=== PATIENT | male | born 1960 | race Caucasian/White ===

== ENCOUNTER 2019-06-21 10:05 | Observation (INO) | payer BC ==
[~2019-06-21] VITALS: Ht 182.9 cm; Wt 101.0 kg
[2019-06-21 10:32] LABS: BASOPHILS # (AUTO) 0.04 x10^3/uL (0-0.1); BASOPHILS % (AUTO) 1 % (0-1); EOSINOPHILS # (AUTO) 0.26 x10^3/uL (0-0.4); EOSINOPHILS % (AUTO) 3 % (1-7); LYMPHOCYTES # (AUTO) 2.16 x10^3/uL (1-3.4); LYMPHOCYTES % (AUTO) 26 % (22-44); MD NO; MEAN CORPUSCULAR HEMOGLOBIN 31.6 pg (27.5-34.5); MEAN CORPUSCULAR HGB CONC 33.4 g/dL (33.2-36.2); MEAN CORPUSCULAR VOLUME 94.7 fL (81-97); MEAN PLATELET VOLUME 8.4 fL (7.4-10.4); MONOCYTES % (AUTO) 8 % (2-9); NEUTROPHILS # (AUTO) 5.19 x10^3/uL (1.8-6.8); NEUTROPHILS % (AUTO) 62 % (42-75); PLATELET COUNT 244 x10^3/uL (130-400); RED BLOOD COUNT 5.57 x10^6/uL (4.38-5.82); RED CELL DISTRIBUTION WIDTH 13.5 % (9.4-14.8)
[2019-06-21 10:41] LABS: ALANINE AMINOTRANSFERASE 55 U/L (12-78); ALBUMIN 4.2 g/dL (3.4-5.0); ANION GAP 7 mmol/L (5-15); CALCIUM 8.7 mg/dL (8.5-10.1); CHLORIDE 107 mmol/L (98-107); CREATININE 1.11 mg/dL (0.7-1.3)
[2019-06-21 10:46] LABS: ALKALINE PHOSPHATASE 89 U/L (45-117); BILIRUBIN,TOTAL 0.8 mg/dL (0.2-1.0); TOTAL PROTEIN 7.9 g/dL (6.4-8.2); TROPONIN I < 0.015 ng/mL (0.000-0.045)
[2019-06-21] MEDS ORDERED: ACETAMINOPHEN 325 MG TABLET PO PRN (12:00)
[2019-06-21] MEDS ORDERED: morphine SULFATE 10 MG/ML, 1ML IVPush PRN (12:00)
[2019-06-21] MEDS ORDERED: NITROGLYCERIN 0.4 MG BOTTLE (25 TABS) SL PRN (12:30)
[2019-06-21] MEDS ORDERED: ENOXAPARIN 40 MG/0.4 ML ONE (13:16)
[2019-06-21] MEDS ORDERED: OMEP-110 PO (14:24)
[2019-06-21] MEDS ORDERED: SIMV80TA18 PO (14:24)
[2019-06-21] MEDS ORDERED: ATEN50TA41 PO (14:24)
[2019-06-21] MEDS: MULTIVITAMIN 1 TABLET PO SCH (14:25)
[2019-06-21] MEDS: ENOXAPARIN 40 MG/0.4 ML SQ SCH (14:26)
--- NOTE | 2019-06-21 14:27 | NUR ---
RECEIVED REPORT FROM ABBE DERAS. CARE ASSUMED. HOSPITAL BED REQUESTED FOR PT. PT RESTING IN POSITION OF COMFORT. DENIES ANY PAIN, CP, SOB AND NEED TO USE RESTROOM. MED REC COMPLETED. VSS. SR ON MONITOR. PT REFUSING IV PLACEMENT, PO MULTIVITAMIN AND LOVENOX "IF I DON'T REALLY NEED THEM I WOULD PREFER NOT TO HAVE THEM, THAT VITAMIN IS PROBABLY EXPENSIVE, AND I FEEL LIKE I'M ACTIVE ENOUGH I WON'T GET A BLOOD CLOT, IF THE IV ISN'T REQUIRED I WOULD LIKE TO WAIT." PT REQUESTING FOOD AND WATER. TO DISCUSS CONCERNS AND REQUEST WITH DR. DUMONT, ADMITTING PROVIDER. FALL PRECAUTIONS IN PLACE. SIDE RAILS UPX2. A&OX4. CALL LIGHT IN REACH.
--- NOTE | 2019-06-21 14:45 | NUR ---
DR. DUMONT PAGED TO DISCUSS PT REQUEST FOR FOOD AND REFUSAL OF IV AND MEDICATIONS.
--- NOTE | 2019-06-21 15:00 | NUR ---
DISCUSSED IV AND MEDICATIONS WITH DR. JULIA MD AWARE PT REFUSED PO MULTI-VITAMIN AND LOVENOX "OKAY THANK YOU PLEASE DOCUMENT HIS REFUSAL." DISCUSSED IV, EXPLAINED NEED FOR IV TO PT, PT AGREES TO HAVE IV PLACED.
--- NOTE | 2019-06-21 15:17 | NUR ---
REPORT GIVEN TO REMI DERAS FOR BED 103-2 IN ICU/OVERFLOW CARD TELE
--- NOTE | 2019-06-21 15:18 | NUR ---
DISCUSSED IV WITH REMI, AWARE PT NEEDS IV AND PT AGREES TO PLACEMENT. REMI RN TO PLACE IV ON FLOOR. DR. DUMONT AWARE.
[2019-06-21 16:48] LABS: TROPONIN I < 0.015 ng/mL (0.000-0.045)
[2019-06-21 19:25] VITALS: BP 163/94
[2019-06-21 20:15] VITALS: BP 153/90
[2019-06-21] MEDS ORDERED: SIMVASTATIN 40 MG TABLET PO SCH (21:00)
[2019-06-21 22:23] LABS: TROPONIN I < 0.015 ng/mL (0.000-0.045)
[2019-06-22 02:00] VITALS: BP 134/87
[2019-06-22 04:38] LABS: BASOPHILS # (AUTO) 0.04 x10^3/uL (0-0.1); BASOPHILS % (AUTO) 1 % (0-1); EOSINOPHILS # (AUTO) 0.27 x10^3/uL (0-0.4); EOSINOPHILS % (AUTO) 4 % (1-7); LYMPHOCYTES # (AUTO) 1.64 x10^3/uL (1-3.4); LYMPHOCYTES % (AUTO) 24 % (22-44); MD NO; MEAN CORPUSCULAR HEMOGLOBIN 32.3 pg (27.5-34.5); MEAN CORPUSCULAR HGB CONC 33.8 g/dL (33.2-36.2); MEAN CORPUSCULAR VOLUME 95.5 fL (81-97); MEAN PLATELET VOLUME 8.7 fL (7.4-10.4); MONOCYTES # (AUTO) 0.61 x10^3/uL (0.2-0.8); MONOCYTES % (AUTO) 9 % (2-9); NEUTROPHILS % (AUTO) 63 % (42-75); PLATELET COUNT 208 x10^3/uL (130-400); RED BLOOD COUNT 5.13 x10^6/uL (4.38-5.82); RED CELL DISTRIBUTION WIDTH 13.2 % (9.4-14.8)
[2019-06-22 04:46] LABS: ANION GAP 7 mmol/L (5-15); CALCIUM 8.7 mg/dL (8.5-10.1); CHLORIDE 109 mmol/L (98-107); CREATININE 1.01 mg/dL (0.7-1.3)
[2019-06-22 04:47] LABS: CHOLESTEROL, TOTAL 156 mg/dL (140-239); TRIGLYCERIDES 149 mg/dL (50-200); VLDL CHOLESTEROL 30 mg/dL (0-25)
[2019-06-22 04:48] LABS: CHOL/HDL RATIO 2.7; HDL CHOL % 37 % (26-37); HDL CHOLESTEROL (DIRECT) 57 mg/dL (40-60); LDL CHOLESTEROL,CALCULATED 69 mg/dL (54-169); LDL/HDL RATIO 1.2 (0.5-3.0)
[2019-06-22] MEDS ORDERED: ASPIRIN 81 MG TABLET EC PO SCH (06:00)
[2019-06-22] MEDS ORDERED: ATENOLOL 25 MG TABLET PO SCH (06:00)
[2019-06-22] MEDS ORDERED: PANTOPROZOLE 40MG TABLET PO SCH (07:30)
[2019-06-22 08:31] VITALS: BP 150/100
[2019-06-22] MEDS: MULTIVITAMIN 1 TABLET PO SCH (09:00)
[2019-06-22] MEDS ORDERED: REGADENOSON 0.4 MG/5 ML SYRINGE ONE (09:15)
[2019-06-22] MEDS: ENOXAPARIN 40 MG/0.4 ML SQ SCH (12:00)
[2019-06-22] MEDS ORDERED: ASPI81TA45 PO (13:45)
== END 2019-06-22 14:40 | disposition home or self-care (01) ==
LOC: ED 11:18 → EDIP 11:19 → INTOOBSV 11:19 → ED 12:08 → ICU 15:27 → DCLOUNGE 06-22 14:36
PROVIDERS: ADMIT Internal Medicine; ATTEND Internal Medicine
DX: R07.89 Other chest pain (principal); I10 Essential (primary) hypertension; E78.5 Hyperlipidemia, unspecified; E78.00 Pure hypercholesterolemia, unspecified; K21.9 Gastro-esophageal reflux disease without esophagitis; I44.7 Left bundle-branch block, unspecified; E66.9 Obesity, unspecified; I16.0 Hypertensive urgency; F10.10 Alcohol abuse, uncomplicated; Z79.899 Other long term (current) drug therapy
CPT/HCPCS: 36415; 71046; 78452; 80048; 80053; 80061; 83735; 84443; 84484; 85025; 87081; 93005; 93017; 93306; A9502; C9898; G0378; J2785

== ENCOUNTER 2019-07-15 22:01 | Emergency (ER) | payer BC ==
[~2019-07-15] VITALS: Ht 182.9 cm; Wt 99.1 kg
[~2019-07-15 22:01] MED LIST: ASPI81TA45 PO; ATEN50TA41 PO; OMEP-110 PO; SIMV80TA18 PO
[2019-07-15] MEDS ORDERED: HYDROmorphone 1 MG/ML, 1ML INJ ONE ×2 (22:23→23:59)
[2019-07-15] MEDS ORDERED: ONDANSETRON 2MG/ML, 2ML ONE (22:23)
[2019-07-15] MEDS: HYDROmorphone 2 MG/ML, 1ML IVPush PRN (22:26)
[2019-07-15] MEDS ORDERED: SODIUM CHLORIDE FLUSH 10ML SYR IVF ONE (22:30)
[2019-07-15] MEDS ORDERED: ONDANSETRON 2MG/ML, 2ML IVPush ONE (22:30)
[2019-07-15 22:42] LABS: BASOPHILS # (AUTO) 0.02 x10^3/uL (0-0.1); BASOPHILS % (AUTO) 0 % (0-1); EOSINOPHILS # (AUTO) 0.52 x10^3/uL (0-0.4); EOSINOPHILS % (AUTO) 7 % (1-7); LYMPHOCYTES # (AUTO) 1.81 x10^3/uL (1-3.4); LYMPHOCYTES % (AUTO) 23 % (22-44); MD NO; MEAN CORPUSCULAR HEMOGLOBIN 31.9 pg (27.5-34.5); MEAN CORPUSCULAR HGB CONC 34.3 g/dL (33.2-36.2); MEAN CORPUSCULAR VOLUME 92.9 fL (81-97); MEAN PLATELET VOLUME 8.9 fL (7.4-10.4); MONOCYTES # (AUTO) 0.97 x10^3/uL (0.2-0.8); MONOCYTES % (AUTO) 12 % (2-9); NEUTROPHILS # (AUTO) 4.55 x10^3/uL (1.8-6.8); NEUTROPHILS % (AUTO) 58 % (42-75); PLATELET COUNT 268 x10^3/uL (130-400); RED CELL DISTRIBUTION WIDTH 13.1 % (9.4-14.8)
[2019-07-15] MEDS ORDERED: OMNIPAQUE 350 MG/ML, 150 ML BOTTLE ONE (22:51)
[2019-07-15 22:52] LABS: ALANINE AMINOTRANSFERASE 208 U/L (12-78); ALBUMIN 3.8 g/dL (3.4-5.0); ANION GAP 6 mmol/L (5-15); CALCIUM 9.4 mg/dL (8.5-10.1); CHLORIDE 109 mmol/L (98-107); CREATININE 1.09 mg/dL (0.7-1.3)
[2019-07-15 22:55] LABS: ALKALINE PHOSPHATASE 132 U/L (45-117); BILIRUBIN,TOTAL 0.9 mg/dL (0.2-1.0); TOTAL PROTEIN 8.1 g/dL (6.4-8.2)
[2019-07-15 23:07] LABS: INTERNATIONAL NORMALIZED RATIO 0.93 (0.93-1.1); PROTHROMBIN TIME 9.9 Seconds (9.6-11.5)
[2019-07-15] MEDS ORDERED: SODIUM CHLORIDE 0.9%, 500ML IVBOLUS ONE (23:30)
[2019-07-15 23:44] LABS: MICROSCOPIC NOT IND
[2019-07-15 23:49] LABS: CULTURE INDICATED? NO
[2019-07-16] MEDS: HYDROmorphone 2 MG/ML, 1ML IVPush PRN (00:08)
[2019-07-16 00:22] VITALS: BP 146/86
== END 2019-07-16 01:40 | disposition home or self-care (01) ==
LOC: ED 07-16 01:25
DX: R10.84 Generalized abdominal pain (principal); M54.6 Pain in thoracic spine; I10 Essential (primary) hypertension; R74.0 Nonspecific elevation of levels of transaminase and lactic acid dehydrogenase [LDH]
CPT/HCPCS: 36415; 71275; 74174; 80053; 80307; 81003; 83605; 83690; 83735; 85025; 85610; 85730; 93005; 96374; 96375; 96376; 99285; J1170; J2405; J7040; Q9967

== ENCOUNTER 2019-11-01 13:37 | Inpatient (IN) | payer BC ==
[~2019-11-01] VITALS: Ht 182.9 cm; Wt 100.6 kg
--- NOTE | 2019-11-01 14:00 | NUR ---
late entry for 1400: pt presents to ED with c/o midline thoracic pain radiating to bilateral abdomen, with n/v onset last night. pt seen in this ED for same last night, discharged. pt reports "the morphine wore off and the pain came back." pt attached to all monitors, EKG taken on arrival in triage. awaiting MD assessment and orders.
[2019-11-01] MEDS ORDERED: MORPHINE SULFATE 4 MG/ML, 1ML IVPush PRN (15:00)
[2019-11-01] MEDS ORDERED: SODIUM CHLORIDE FLUSH 10ML SYR IVF ONE (15:00)
--- NOTE | 2019-11-01 15:04 | NUR ---
pt vomited and became tachycardic as high as rate 140. pt remains tachy at rate 120s. pt has wide qrs complex, repeat ekg taken, showing sinus tach with bundle branch block. TOMASA King notified, both EKGs reviewed by ED. pt awake, alert, and oriented. resps even and unlabored. pt remains hypertensive. MD to see pt shortly.
--- NOTE | 2019-11-01 15:07 | NUR ---
report given to AUGUSTA Felder at bedside.
[2019-11-01] MEDS ORDERED: HYDROmorphone 1 MG/ML, 1ML INJ ONE (15:20)
[2019-11-01] MEDS ORDERED: ONDANSETRON 2MG/ML, 2ML ONE (15:20)
[2019-11-01] MEDS ORDERED: METOPROLOL 1 MG/ML, 5ML ONE ×2 (15:21→16:24)
--- NOTE | 2019-11-01 15:24 | NUR ---
ECHOCARDIOGRAM IN PROCESS AT BEDSIDE. SCANNER AND ROOM COMPUTER UNACCESSIBLE AT THE MOMENT. PT DENIES ANY NEEDS OR CONCERNS AT THIS TIME, CALL LIGHT IN REACH.
[2019-11-01] MEDS ORDERED: HYDROmorphone 2 MG/ML, 1ML IVPush PRN (15:30)
[2019-11-01] MEDS ORDERED: ONDANSETRON 2MG/ML, 2ML IVPush ONE (15:30)
[2019-11-01 15:35] LABS: ALANINE AMINOTRANSFERASE 316 U/L (12-78); ALBUMIN 3.9 g/dL (3.4-5.0); ANION GAP 8 mmol/L (5-15); CALCIUM 8.9 mg/dL (8.5-10.1); CHLORIDE 108 mmol/L (98-107); CREATININE 1.11 mg/dL (0.7-1.3)
[2019-11-01 15:40] LABS: ALKALINE PHOSPHATASE 171 U/L (45-117); BILIRUBIN,TOTAL 4.4 mg/dL (0.2-1.0); TOTAL PROTEIN 7.6 g/dL (6.4-8.2); TROPONIN I < 0.015 ng/mL (0.000-0.045)
[2019-11-01 15:41] LABS: MEAN CORPUSCULAR HEMOGLOBIN 32.1 pg (27.5-34.5); MEAN CORPUSCULAR VOLUME 94.4 fL (81-97); MEAN PLATELET VOLUME 8.4 fL (7.4-10.4); PLATELET COUNT 167 x10^3/uL (130-400); RED BLOOD COUNT 5.33 x10^6/uL (4.38-5.82); RED CELL DISTRIBUTION WIDTH 13.7 % (9.4-14.8)
[2019-11-01] MEDS: METOPROLOL 1 MG/ML, 5ML IVPush PRN ×2 (16:10→16:28)
--- NOTE | 2019-11-01 16:19 | NUR ---
CARLIE NEWMAN - [facility] - [phone]
--- NOTE | 2019-11-01 16:19 | NUR ---
PT VERBALIZES GOOD PAIN RELIEF WITH MEDICATION. DENIES ANY FURTHER NEEDS AT THIS TIME. CALL LIGHT IN REACH.
[2019-11-01 16:26] LABS: MD YES
[2019-11-01 16:31] LABS: BAND#(MANUAL) 2.24 x10^3/uL; BANDS%(MANUAL) 16 % (0-7); LYMPH#(MANUAL) 0.42 x10^3/uL (1-3.4); LYMPHS% (MANUAL) 3 % (22-44); MONOS% (MANUAL) 5 % (2-9); SEG#(MANUAL) 10.64 x10^3/uL (1.8-6.8); SEGS% (MANUAL) 76 % (42-75)
[2019-11-01 16:33] LABS: <PLATELET ESTIMATE> ADEQUATE; <PLT MORPHOLOGY> NORMAL PLT MORPH; ANISOCYTOSIS 1+; OVALOCYTES 1+
--- NOTE | 2019-11-01 18:23 | NUR ---
REPORT CALLED TO ROLY, RECEIVING RN. PT RESTING IN BED, DENIES ANY NEEDS OR CONCERNS AT THIS TIME. CALL LIGHT IN REACH.
[2019-11-01] MEDS ORDERED: DEXTROSE 50%, 50ML SYRINGE IVPush ONE (18:30)
[2019-11-01 18:54] VITALS: BP 119/81
[2019-11-01] MEDS ORDERED: BISACODYL 10 MG SUPP PR PRN (19:00)
[2019-11-01] MEDS ORDERED: ONDANSETRON 2MG/ML, 2ML IVPush PRN (19:00)
[2019-11-01] MEDS: HEPARIN 5,000 UNITS/ML, 1ML SQ SCH (19:19)
[2019-11-01] MEDS: LACTATED RINGERS 1,000 ML IV SCH (19:20)
[2019-11-01 20:00] VITALS: BP 119/81
[2019-11-01] MEDS ORDERED: CHOL10003 PO (22:10)
[2019-11-01] MEDS ORDERED: MULT-826 PO (22:11)
[2019-11-02] MEDS: LACTATED RINGERS 1,000 ML IV SCH ×4 (01:35→21:50)
[2019-11-02] MEDS: morphine SULFATE 10 MG/ML, 1ML IVPush PRN ×4 (01:44→17:38)
[2019-11-02 01:55] VITALS: BP 114/76
[2019-11-02 05:01] VITALS: BP 143/81
[2019-11-02 05:28] LABS: BASOPHILS # (AUTO) 0.01 x10^3/uL (0-0.1); BASOPHILS % (AUTO) 0 % (0-1); EOSINOPHILS # (AUTO) 0.07 x10^3/uL (0-0.4); EOSINOPHILS % (AUTO) 1 % (1-7); LYMPHOCYTES # (AUTO) 0.52 x10^3/uL (1-3.4); LYMPHOCYTES % (AUTO) 4 % (22-44); MD NO; MEAN CORPUSCULAR HEMOGLOBIN 31.6 pg (27.5-34.5); MEAN CORPUSCULAR HGB CONC 33.8 g/dL (33.2-36.2); MEAN CORPUSCULAR VOLUME 93.5 fL (81-97); MEAN PLATELET VOLUME 9.1 fL (7.4-10.4); MONOCYTES # (AUTO) 0.76 x10^3/uL (0.2-0.8); MONOCYTES % (AUTO) 6 % (2-9); NEUTROPHILS # (AUTO) 11.24 x10^3/uL (1.8-6.8); NEUTROPHILS % (AUTO) 89 % (42-75); PLATELET COUNT 178 x10^3/uL (130-400); RED BLOOD COUNT 4.76 x10^6/uL (4.38-5.82); RED CELL DISTRIBUTION WIDTH 13.7 % (9.4-14.8)
[2019-11-02] MEDS: HEPARIN 5,000 UNITS/ML, 1ML SQ SCH ×3 (05:30→21:20)
[2019-11-02 05:38] LABS: CHLORIDE 105 mmol/L (98-107)
[2019-11-02 05:45] LABS: ALANINE AMINOTRANSFERASE 363 U/L (12-78); ALBUMIN 3.4 g/dL (3.4-5.0); ALKALINE PHOSPHATASE 152 U/L (45-117); ANION GAP 7 mmol/L (5-15); CALCIUM 8.5 mg/dL (8.5-10.1); CHOL/HDL RATIO 1.8; CHOLESTEROL, TOTAL 108 mg/dL (140-239); CREATININE 1.04 mg/dL (0.7-1.3); HDL CHOL % 56 % (26-37); HDL CHOLESTEROL (DIRECT) 61 mg/dL (40-60); TOTAL PROTEIN 6.8 g/dL (6.4-8.2)
[2019-11-02 05:53] LABS: LDL CHOLESTEROL,CALCULATED 35 mg/dL (54-169); LDL/HDL RATIO 0.6 (0.5-3.0); TRIGLYCERIDES 61 mg/dL (50-200); VLDL CHOLESTEROL 12 mg/dL (0-25)
[2019-11-02 06:42] VITALS: BP 149/81
[2019-11-02] MEDS ORDERED: LORazepam 2 MG/ML, 1ML IV PRN (08:00)
[2019-11-02] MEDS: ACETAMINOPHEN 325 MG TABLET PO PRN ×2 (11:15→21:20)
[2019-11-02 13:35] VITALS: BP 139/68
[2019-11-02 18:07] VITALS: BP 156/87
[2019-11-03 01:51] VITALS: BP 154/90
[2019-11-03] MEDS: LACTATED RINGERS 1,000 ML IV SCH ×3 (04:25→21:20)
[2019-11-03] MEDS: HEPARIN 5,000 UNITS/ML, 1ML SQ SCH ×3 (05:14→20:47)
[2019-11-03] MEDS: ACETAMINOPHEN 325 MG TABLET PO PRN (05:16)
[2019-11-03 06:17] VITALS: BP 144/83
[2019-11-03] MEDS ORDERED: OMNIPAQUE 350 MG/ML, 100ML BOTTLE ONE (09:53)
[2019-11-03] MEDS ORDERED: GADOTERATE 10 MMOL/20 ML VIAL ONE (10:37)
[2019-11-03 11:52] LABS: MICROSCOPIC NOT IND
[2019-11-03 12:47] VITALS: BP 158/82
[2019-11-03 18:31] VITALS: BP 155/85
[2019-11-03] MEDS ORDERED: METOCLOPRAMIDE 5 MG/ML, 2ML IVPush ONE (21:00)
[2019-11-03] MEDS ORDERED: DIPHENHYDRAMINE 50 MG/ML, 1ML IVPush ONE (21:00)
[2019-11-04 01:34] VITALS: BP 149/78
[2019-11-04] MEDS: HEPARIN 5,000 UNITS/ML, 1ML SQ SCH ×3 (04:58→19:58)
[2019-11-04] MEDS: LACTATED RINGERS 1,000 ML IV SCH ×3 (04:58→17:01)
[2019-11-04 06:21] LABS: BASOPHILS # (AUTO) 0.01 x10^3/uL (0-0.1); BASOPHILS % (AUTO) 0 % (0-1); EOSINOPHILS # (AUTO) 0.17 x10^3/uL (0-0.4); EOSINOPHILS % (AUTO) 2 % (1-7); LYMPHOCYTES # (AUTO) 0.91 x10^3/uL (1-3.4); LYMPHOCYTES % (AUTO) 11 % (22-44); MD NO; MEAN CORPUSCULAR HEMOGLOBIN 32.1 pg (27.5-34.5); MEAN CORPUSCULAR HGB CONC 34.5 g/dL (33.2-36.2); MEAN CORPUSCULAR VOLUME 93.2 fL (81-97); MEAN PLATELET VOLUME 8.9 fL (7.4-10.4); MONOCYTES # (AUTO) 0.96 x10^3/uL (0.2-0.8); MONOCYTES % (AUTO) 11 % (2-9); NEUTROPHILS # (AUTO) 6.59 x10^3/uL (1.8-6.8); NEUTROPHILS % (AUTO) 76 % (42-75); PLATELET COUNT 169 x10^3/uL (130-400); RED BLOOD COUNT 4.66 x10^6/uL (4.38-5.82); RED CELL DISTRIBUTION WIDTH 13.5 % (9.4-14.8)
[2019-11-04 06:23] LABS: ALANINE AMINOTRANSFERASE 250 U/L (12-78); ALBUMIN 3.1 g/dL (3.4-5.0); ANION GAP 10 mmol/L (5-15); CALCIUM 8.2 mg/dL (8.5-10.1); CHLORIDE 104 mmol/L (98-107); CREATININE 0.83 mg/dL (0.7-1.3)
[2019-11-04 06:26] LABS: ALKALINE PHOSPHATASE 159 U/L (45-117); BILIRUBIN,TOTAL 2.7 mg/dL (0.2-1.0); TOTAL PROTEIN 6.9 g/dL (6.4-8.2)
[2019-11-04 07:08] VITALS: BP 168/100
[2019-11-04] MEDS: hydrALAzine 20 MG/ML, 1ML IVPush PRN ×2 (07:47→12:17)
[2019-11-04] MEDS: OXYcodone IR 5MG TABLET PO PRN ×3 (10:39→23:05)
[2019-11-04 12:02] VITALS: BP 182/96
[2019-11-04 18:15] VITALS: BP 178/94
[2019-11-04] MEDS: morphine SULFATE 10 MG/ML, 1ML IVPush PRN (19:58)
[2019-11-05] MEDS: LACTATED RINGERS 1,000 ML IV SCH ×2 (00:02→06:12)
[2019-11-05 00:43] VITALS: BP 157/86
[2019-11-05] MEDS: HEPARIN 5,000 UNITS/ML, 1ML SQ SCH ×2 (05:05→13:09)
[2019-11-05] MEDS: OXYcodone IR 5MG TABLET PO PRN (05:05)
[2019-11-05 06:14] LABS: BASOPHILS % (AUTO) 0 % (0-1); EOSINOPHILS # (AUTO) 0.13 x10^3/uL (0-0.4); EOSINOPHILS % (AUTO) 2 % (1-7); LYMPHOCYTES # (AUTO) 1.05 x10^3/uL (1-3.4); LYMPHOCYTES % (AUTO) 13 % (22-44); MD NO; MEAN CORPUSCULAR HEMOGLOBIN 31.5 pg (27.5-34.5); MEAN CORPUSCULAR HGB CONC 33.9 g/dL (33.2-36.2); MEAN CORPUSCULAR VOLUME 92.8 fL (81-97); MEAN PLATELET VOLUME 8.4 fL (7.4-10.4); MONOCYTES # (AUTO) 0.91 x10^3/uL (0.2-0.8); MONOCYTES % (AUTO) 12 % (2-9); NEUTROPHILS # (AUTO) 5.75 x10^3/uL (1.8-6.8); NEUTROPHILS % (AUTO) 73 % (42-75); PLATELET COUNT 195 x10^3/uL (130-400); RED BLOOD COUNT 4.52 x10^6/uL (4.38-5.82); RED CELL DISTRIBUTION WIDTH 13.5 % (9.4-14.8)
[2019-11-05 06:23] LABS: CHLORIDE 105 mmol/L (98-107)
[2019-11-05 06:34] LABS: ALANINE AMINOTRANSFERASE 191 U/L (12-78); ALKALINE PHOSPHATASE 149 U/L (45-117); ANION GAP 8 mmol/L (5-15); BILIRUBIN,TOTAL 2.1 mg/dL (0.2-1.0); CALCIUM 8.4 mg/dL (8.5-10.1); CREATININE 0.67 mg/dL (0.7-1.3); TOTAL PROTEIN 6.7 g/dL (6.4-8.2)
[2019-11-05 06:38] VITALS: BP 160/89
[2019-11-05] MEDS ORDERED: AMLODIPINE 5 MG TABLET PO SCH (09:00)
[2019-11-05] MEDS ORDERED: CHLORTHALIDONE 25 MG TABLET PO SCH (10:30)
[2019-11-05] MEDS ORDERED: MULTIVITAMIN 1 TABLET PO SCH (10:30)
[2019-11-05] MEDS ORDERED: POTASSIUM CHLORIDE 20 MEQ TAB.ER.PRT PO SCH (10:30)
[2019-11-05] MEDS ORDERED: CHOLECALCIFEROL 1,000 UNIT TABLET PO SCH (10:30)
[2019-11-05] MEDS ORDERED: ATENOLOL 50 MG TABLET PO SCH (10:30)
[2019-11-05] MEDS ORDERED: OMEPRAZOLE 20 MG CAPSULE.DR PO SCH (10:30)
[2019-11-05 10:37] LABS: TROPONIN I < 0.015 ng/mL (0.000-0.045)
[2019-11-05 13:23] VITALS: BP 152/92
[2019-11-05 14:53] LABS: TROPONIN I < 0.015 ng/mL (0.000-0.045)
[2019-11-05] MEDS ORDERED: CHLO25TA PO (15:17)
[2019-11-05] MEDS ORDERED: POTA20TA6 PO (15:17)
[2019-11-05] MEDS ORDERED: AMLO-150 PO (15:17)
[2019-11-05] MEDS ORDERED: LACTATED RINGERS 1,000 ML IV SCH (18:45)
[2019-11-06] MEDS ORDERED: OMEPRAZOLE 20 MG CAPSULE.DR PO SCH (09:00)
[2019-11-06] MEDS ORDERED: ATENOLOL 50 MG TABLET PO SCH (09:00)
[2019-11-06] MEDS ORDERED: CHOLECALCIFEROL 1,000 UNIT TABLET PO SCH (09:00)
[2019-11-06] MEDS ORDERED: CHLORTHALIDONE 25 MG TABLET PO SCH (09:00)
[2019-11-06] MEDS ORDERED: MULTIVITAMIN 1 TABLET PO SCH (09:00)
== END 2019-11-05 17:03 | disposition home or self-care (01) | DRG 871 ==
LOC: ED 14:22 → EDIP 17:22 → 4WST 18:42 → DCLOUNGE 11-05 16:58
PROVIDERS: ADMIT Internal Medicine; ATTEND Internal Medicine
DX: A41.9 Sepsis, unspecified organism (principal); K85.20 Alcohol induced acute pancreatitis without necrosis or infection; K21.9 Gastro-esophageal reflux disease without esophagitis; E78.5 Hyperlipidemia, unspecified; I44.7 Left bundle-branch block, unspecified; I10 Essential (primary) hypertension; R74.0 Nonspecific elevation of levels of transaminase and lactic acid dehydrogenase [LDH]; R16.2 Hepatomegaly with splenomegaly, not elsewhere classified; R00.0 Tachycardia, unspecified; F10.10 Alcohol abuse, uncomplicated; R79.89 Other specified abnormal findings of blood chemistry; E66.9 Obesity, unspecified; N28.89 Other specified disorders of kidney and ureter; Z82.49 Family history of ischemic heart disease and other diseases of the circulatory system; Z87.442 Personal history of urinary calculi
CPT/HCPCS: 36415; 71275; 74183; 76700; 80053; 80061; 80074; 81003; 82962; 83605; 83690; 84484; 85025; 85379; 87040; 93005; 93306; 96374; 96375; G0378; J1170; J1644; J2405; Q9967; A9575; J0360; J1200; J2060; J2270; J2765; J7120

== ENCOUNTER 2020-01-29 04:51 | Emergency (ER) | payer BC ==
[~2020-01-29] VITALS: Ht 182.9 cm; Wt 92.5 kg
[~2020-01-29 04:51] MED LIST changes: +AMLO-150 PO; +CHLO25TA PO; +CHOL10003 PO; +MULT-826 PO; +POTA20TA6 PO
[2020-01-29] MEDS ORDERED: ONDANSETRON 2MG/ML, 2ML ONE (05:21)
[2020-01-29] MEDS ORDERED: morphine SULFATE 10 MG/ML, 1ML ONE (05:21)
[2020-01-29] MEDS ORDERED: MORPHINE SULFATE 4 MG/ML, 1ML IVPush PRN (05:30)
[2020-01-29] MEDS ORDERED: MORPHINE SULFATE 4 MG/ML, 1ML IVPush ONE (05:30)
[2020-01-29] MEDS ORDERED: ONDANSETRON 2MG/ML, 2ML IVPush ONE (05:30)
--- NOTE | 2020-01-29 05:31 | NUR ---
PT PRESENTS TO ROOM 21 C/O EPIGASTRIC ABD PAIN THAT RADIATES AROUND THE LEFT SIDE AND INTO HIS BACK. PT HAS LABORED BREATHING AND IS GRUNTING WHILE PACING THE ROOM. PT HAS TENDERNESS IN UPPER ABD. PT MEDICATED PER EMAR, WITH SOME RELIEF. MONITORS IN PLACE, AT BEDSIDE
[2020-01-29] MEDS ORDERED: MORPHINE SULFATE 4 MG/ML, 1ML ONE (05:43)
[2020-01-29 06:01] LABS: BASOPHILS # (AUTO) 0.05 x10^3/uL (0-0.1); BASOPHILS % (AUTO) 1 % (0-1); EOSINOPHILS # (AUTO) 0.27 x10^3/uL (0-0.4); EOSINOPHILS % (AUTO) 3 % (1-7); LYMPHOCYTES # (AUTO) 1.66 x10^3/uL (1-3.4); LYMPHOCYTES % (AUTO) 17 % (22-44); MD NO; MEAN CORPUSCULAR HEMOGLOBIN 30.9 pg (27.5-34.5); MEAN CORPUSCULAR HGB CONC 33.7 g/dL (33.2-36.2); MEAN CORPUSCULAR VOLUME 91.5 fL (81-97); MEAN PLATELET VOLUME 7.8 fL (7.4-10.4); MONOCYTES % (AUTO) 6 % (2-9); NEUTROPHILS # (AUTO) 7.13 x10^3/uL (1.8-6.8); NEUTROPHILS % (AUTO) 73 % (42-75); PLATELET COUNT 383 x10^3/uL (130-400); RED CELL DISTRIBUTION WIDTH 13.4 % (9.4-14.8)
[2020-01-29 06:05] LABS: ALBUMIN 3.9 g/dL (3.4-5.0); ANION GAP 7 mmol/L (5-15); CALCIUM 9.6 mg/dL (8.5-10.1); CHLORIDE 104 mmol/L (98-107)
[2020-01-29 06:10] LABS: ALANINE AMINOTRANSFERASE 27 U/L (12-78); ALKALINE PHOSPHATASE 108 U/L (45-117); BILIRUBIN,TOTAL 0.5 mg/dL (0.2-1.0); CREATININE 1.23 mg/dL (0.7-1.3); TOTAL PROTEIN 8.3 g/dL (6.4-8.2)
--- NOTE | 2020-01-29 06:10 | NUR ---
PT RESTING COMFORTABLY IN BED WITH EYES CLOSED. MONITORS IN PLACE
--- NOTE | 2020-01-29 06:24 | NUR ---
PT PROVIDED URINAL AND ENCOURAGED TO PROVIDE UA SAMPLE
--- NOTE | 2020-01-29 06:53 | NUR ---
REPORT RECEIVED FROM AUGUSTA LOVE FOR TRANSFER OF CARE AT PATIENT BEDSIDE.
[2020-01-29] MEDS ORDERED: OMNIPAQUE 350 MG/ML, 100ML BOTTLE ONE (07:15)
--- NOTE | 2020-01-29 07:25 | NUR ---
PATIENT RESTING IN [place], PAIN LEVEL CONTROLLED DOES NOT REQUEST PAIN MEDICINE, CONNECTED TO VITAL SIGN MACHINE, CALL LIGHT WITHIN REACH, NO FURTHER NEEDS AT THIS TIME.
--- NOTE | 2020-01-29 07:46 | NUR ---
EDUCATED PATIENT ABOUT NEED FOR URINE SAMPLE, PATIENT STATES HE WILL TRY TO URINATE.
[2020-01-29 07:49] VITALS: BP 115/71
--- NOTE | 2020-01-29 09:30 | NUR ---
Discharge instructions reviewed.
== END 2020-01-29 09:41 | disposition home or self-care (01) ==
LOC: ED 05:33
DX: R10.13 Epigastric pain (principal); I44.7 Left bundle-branch block, unspecified; R11.0 Nausea; I10 Essential (primary) hypertension; E78.5 Hyperlipidemia, unspecified
CPT/HCPCS: 36415; 74177; 80053; 83690; 85025; 93005; 96374; 96375; 99285; J2270; J2405; Q9967

== ENCOUNTER 2020-06-01 19:11 | Emergency (ER) | payer BC ==
[~2020-06-01] VITALS: Ht 182.9 cm; Wt 101.2 kg
--- NOTE | 2020-06-01 20:10 | NUR ---
PT C/O INABILITY TO URINATE SINCE 0630 TODAY. PT HAD GALL REMOVAL AT 0700. PT HAS 4 SMALL SURGICAL INCISIONS ON STOMACH. PAIN 0/10.
--- NOTE | 2020-06-01 20:29 | NUR ---
BLADDER SCAN SHOWED ABOUT 350ML. INDWELLING HERNANDEZ PLACED PER ORDER. PT OK WITH POC.
--- NOTE | 2020-06-01 20:31 | NUR ---
PROVIDER AT BEDSIDE TO UPDATE PT ON POC.
[2020-06-01 20:32] VITALS: BP 122/78
== END 2020-06-01 20:55 | disposition home or self-care (01) ==
LOC: ED 19:41
DX: R33.0 Drug induced retention of urine (principal); I10 Essential (primary) hypertension; E78.5 Hyperlipidemia, unspecified
CPT/HCPCS: 51702; 99284